=== PATIENT | female | born 1965 | race Caucasian/White ===

== ENCOUNTER 2016-12-10 07:51 | Emergency (ER) | payer BC ==
[2016-12-10 08:41] LABS: Hematocrit 40 % (35-47); Hemoglobin 13.7 g/dl (12.0-16.0); Mean Corpuscular HGB Conc 34 g/dl (31-36); Mean Corpuscular Hemoglobin 30 pg (27-31); Mean Corpuscular Volume 87 fL (80-97); Mean Platelet Volume 7 um3 (7.4-10.4); Red Blood Count 4.58 10^6/ul (4.0-5.4); Red Cell Distribution Width 12 % (10.5-15); White Blood Count 6.2 10^3/ul (3.5-10.8)
[2016-12-10 08:47] LABS: Urine Bacteria Absent (Absent); Urine Bilirubin Negative (Negative); Urine Glucose Negative (Negative); Urine Nitrite Negative (Negative)
[2016-12-10 08:59] LABS: Albumin 4.1 g/dL (3.2-5.2); BUN/Creatinine Ratio 15.8 (8-20); Calcium 8.9 mg/dL (8.6-10.3); EGFR African American 103.6 (>60); EGFR Non-African American 80.6 (>60); Globulin 2.4 g/dL (2-4); Magnesium 2.1 mg/dL (1.9-2.7); Potassium 3.8 mmol/L (3.5-5.0); Total Bilirubin 0.6 mg/dL (0.2-1.0); Total Protein 6.5 g/dL (6.4-8.9)
[2016-12-10 09:28] LABS: TSH (Thyroid Stimulating Horm) 1.06 mcIU/mL (0.34-5.60)
--- NOTE | 2016-12-10 14:07 | ED ---
HPI Cardiac - HPI Summary HPI Summary: This 51 y/o female presents to ED via ambulance for intermittent tingling/warm paresthesia "through entire body" today AM while driving. She expresses concern for possible heart attack. She did not take any ASA this morning. Pt also reports sinus discomfort since yesterday and chronic right shoulder pain that flared up during today AM's episode. She is menopausal. PMHx includes CMT and HLD controlled by meds. FHx is negative for cardiac dz. Renetta Note: Patient is a 51yo female who presents with a 1 hour history of sudden onset right shoulder/clavicular pain while driving to work. Soon after experiencing a "warm" sensation starting from her feet and radiating to the rest of her body. Concerned for [place]. Patient expressed concern for possible [place]. Denies family or personal history of cardiac issues. Patient reports she has been somewhat feeling "off" lately describing this feeling as coming down with something perhaps. However, notes she has been feeling this way and extremely fatigued for a year or so. They became vegetarian one year ago to be healthier and cut down on her cholesterol. However, she notes her cholesterol remains high, and she has been fatigued. Provider discussed the possible need for B12 and should follow up with PCP about this. Denies chest pain, SOB, LOVELL, weakness in extremities or blurry vision. - History of Current Complaint Chief Complaint: EDGeneral Stated Complaint: TINGLING Hx Obtained From: Patient Onset/Duration: Started Minutes Ago Timing: Lasting Minutes Initial Severity: Mild Current Severity: Mild Pain Intensity: 0 Pain Scale Used: 0-10 Numeric Chest Pain Radiates To:: Other - chest pain is upper clavicular/shoulder pain Aggravating Factor(s): Nothing Alleviating Factor(s): Nothing Associated Signs and Symptoms: Positive: Numbness, Tingling - dissipated within minutes Related History: Similar Episode/Dx as: - Risk Factors Pulmonary Embolism Risk Factors: Negative Cardiac Risk Factors: Elevated Lipids Atrial Fibrillation Risk Factors: Hypothyroid TAD Risk Factors: Negative AMI/ACS Risk Factors: Dyslipidemia Pseudomonas Risk Factors: Negative Tuberculosis Risk Factors: Negative - Allergy/Home Medications Allergies/Adverse Reactions: Allergies Allergy/AdvReac Type Severity Reaction Status Date / Time Iodine Allergy Rash Verified 12/10/16 08:09 PMH/Surg Hx/FS Hx/Imm Hx Previously Healthy: Yes Infectious Disease History: No Infectious Disease History: Denies: Traveled Outside the [place] in Last 30 Days - Social History Occupation: Employed Full-time Lives: With Family Alcohol Use: None Substance Use Type: Reports: None Hx Tobacco Use: No Smoking Status (MU): Never Smoked Tobacco Review of Systems - ROS Summary Review of Systems Summary: Constitutional: The patient denies fever, LOVELL. HEENT: Head: The patient denies headaches or dizziness. Eyes: The patient denies diplopia, blurry vision, eye pain, eye discharge, photophobia. Throat: The patient denies sore throats or hoarseness. Cardiovascular: The patient denies chest pain, palpitations, syncope, night cramps, or orthostasis. Respiratory: The patient denies cough, sputum production, hemoptysis, dyspnea, wheezing. Gastrointestinal: Denies abdominal pain, nausea or vomiting. Denies constipation or diarrhea. Genitourinary: Patient denies dysuria, hematuria, or pyuria. Patient denies back pain. Denies vaginal discharge, vaginal bleeding. Denies other urinary symptoms. Endocrine: The patient denies polydipsia, polyuria, or polyphagia. Patient experienced warm body sensation from feet to head. Muscles: The patient strain or weakness. Patient endorses pain over clavicular area on Rt side adjoining with R shoulder. Patient weak at baseline d /t her muscular disorder. Joints: The patient denies arthralgia and/or arthritis. Neurologic: The patient denies headache, loss of consciousness, or seizure. Dermatologic: The patient denies hyperpigmentation, rash, or photosensitivity. All Other Systems Reviewed And Are Negative: Yes NIH Scale - NIH Scale Level of Consciousness: Alert/Keenly Responsive Ask Pt to Open/Close Eyes and [employer]r Central Office/Release Non-Paretic Hand: Both Correctly Best Gaze (Only Horizontal Eye Movement): Normal Visual Field Testing: No Visual Loss Facial Paresis-Pt to Smile & Close Eyes or Grimace Symmetry: Normal/Symmetrical Motor Function - Right Arm: No Drift-Holds 10 Seconds Motor Function - Left Arm: No Drift-Holds 10 Seconds Motor Function - Right Leg: No Drift-Holds 10 Seconds Motor Function - Left Leg: No Drift-Holds 10 Seconds Best Language (Describe Picture, Name Items): No Aphasia Dysarthria (Read Several Words): Normal Physical Exam - Summary Physical Exam Summary: Constitutional: Well-developed, Well-nourished, Alert. (-) Distressed Skin: Warm, Dry HENT: Normocephalic; Atraumatic Eyes: Conjunctiva normal Neck: Musculoskeletal ROM normal neck. (-) JVD, (-) Stridor, (-) Tracheal deviation Cardio: Rhythm regular, rate normal, Heart sounds normal; Intact distal pulses; The pedal pulses are 2+ and symmetric. Radial pulses are 2+ and symmetric. (-) Murmur Pulmonary/Chest wall: Effort normal. (-) Respiratory distress, (-) Wheezes, (-) Rales Abd: Soft, (-) Tenderness, (-) Distension, (-) Guarding, (-) Rebound Musculoskeletal: (-) Edema Lymph: (-) Cervical adenopathy Neuro: Alert, Oriented x3 Psych: Mood and affect Normal Vital Signs On Initial Exam: Initial Vitals Temp Pulse Resp BP Pulse Ox 99.8 F 84 16 159/72 97 12/10/16 07:59 12/10/16 07:59 12/10/16 07:59 12/10/16 07:59 12/10/16 07:59 - Annel Coma Scale Coma Scale Total: 15 Diagnostics - Vital Signs Vital Signs Temp Pulse Resp BP Pulse Ox 12/10/16 12:56 98.9 F 68 16 137/75 12/10/16 10:00 77 18 119/80 100 12/10/16 09:30 75 23 145/69 99 12/10/16 09:00 69 17 116/65 99 12/10/16 08:44 129/68 12/10/16 08:33 75 25 97 12/10/16 08:32 121/65 12/10/16 07:59 99.8 F 84 16 159/72 97 - Laboratory Lab Results: Lab Results 12/10/16 12/10/16 12/10/16 Range/Units 08:26 08:26 08:26 WBC 6.2 (3.5-10.8) 10^3/ul RBC 4.58 (4.0-5.4) 10^6/ul Hgb 13.7 (12.0-16.0) g/dl Hct 40 (35-47) % MCV 87 (80-97) fL MCH 30 (27-31) pg MCHC 34 (31-36) g/dl RDW 12 (10.5-15) % Plt Count 224 (150-450) 10^3/ul MPV 7 L (7.4-10.4) um3 Neut % (Auto) 72.5 (38-83) % Lymph % (Auto) 21.8 L (25-47) % Dorado % (Auto) 4.6 (1-9) % Eos % (Auto) 0.6 (0-6) % Baso % (Auto) 0.5 (0-2) % Absolute Neuts (auto) 4.5 (1.5-7.7) 10^3/ul Absolute Lymphs (auto) 1.3 (1.0-4.8) 10^3/ul Absolute Monos (auto) 0.3 (0-0.8) 10^3/ul Absolute Eos (auto) 0 (0-0.6) 10^3/ul Absolute Basos (auto) 0 (0-0.2) 10^3/ul Absolute Nucleated RBC 0 10^3/ul Nucleated RBC % 0 INR (Anticoag Therapy) 1.06 (0.89-1.11) APTT 31.2 (26.0-36.3) seconds Sodium 138 (133-145) mmol/L Potassium 3.8 (3.5-5.0) mmol/L Chloride 104 (101-111) mmol/L Carbon Dioxide 27 (22-32) mmol/L Anion Gap 7 (2-11) mmol/L BUN 12 (6-24) mg/dL Creatinine 0.76 (0.51-0.95) mg/dL Est GFR ( Amer) 103.6 (>60) Est GFR (Non-Af Amer) 80.6 (>60) BUN/Creatinine Ratio 15.8 (8-20) Glucose 92 (70-100) mg/dL Calcium 8.9 (8.6-10.3) mg/dL Magnesium 2.1 (1.9-2.7) mg/dL Total Bilirubin 0.60 (0.2-1.0) mg/dL AST 20 (13-39) U/L ALT 20 (7-52) U/L Alkaline Phosphatase 35 (34-104) U/L Total Creatine Kinase 31 (10-223) U/L CK-MB (CK-2) 1.3 (0.6-6.3) ng/mL Myoglobin 27.8 (14.3-65.8) ng/mL Troponin I 0.00 (<0.04) ng/mL B-Natriuretic Peptide ( - 100) pg/mL Total Protein 6.5 (6.4-8.9) g/dL Albumin 4.1 (3.2-5.2) g/dL Globulin 2.4 (2-4) g/dL Albumin/Globulin Ratio 1.7 (1-3) TSH Pending Urine Color Urine Appearance Urine pH (5-9) Ur Specific [place] (1.010-1.030) Urine Protein (Negative) Urine Ketones (Negative) Urine Blood (Negative) Urine Nitrate (Negative) Urine Bilirubin (Negative) Urine Urobilinogen (Negative) Ur Leukocyte Esterase (Negative) Urine WBC (Auto) (Absent) Urine RBC (Auto) (Absent) Ur Squamous Epith Cells (Absent) Urine Bacteria (Absent) Urine Glucose (Negative) 12/10/16 12/10/16 Range/Units 08:26 08:26 WBC (3.5-10.8) 10^3/ul RBC (4.0-5.4) 10^6/ul Hgb (12.0-16.0) g/dl Hct (35-47) % MCV (80-97) fL MCH (27-31) pg MCHC (31-36) g/dl RDW (10.5-15) % Plt Count (150-450) 10^3/ul MPV (7.4-10.4) um3 Neut % (Auto) (38-83) % Lymph % (Auto) (25-47) % Dorado % (Auto) (1-9) % Eos % (Auto) (0-6) % Baso % (Auto) (0-2) % Absolute Neuts (auto) (1.5-7.7) 10^3/ul Absolute Lymphs (auto) (1.0-4.8) 10^3/ul Absolute Monos (auto) (0-0.8) 10^3/ul Absolute Eos (auto) (0-0.6) 10^3/ul Absolute Basos (auto) (0-0.2) 10^3/ul Absolute Nucleated RBC 10^3/ul Nucleated RBC % INR (Anticoag Therapy) (0.89-1.11) APTT (26.0-36.3) seconds Sodium (133-145) mmol/L Potassium (3.5-5.0) mmol/L Chloride (101-111) mmol/L Carbon Dioxide (22-32) mmol/L Anion Gap (2-11) mmol/L BUN (6-24) mg/dL Creatinine (0.51-0.95) mg/dL Est GFR ( Amer) (>60) Est GFR (Non-Af Amer) (>60) BUN/Creatinine Ratio (8-20) Glucose (70-100) mg/dL Calcium (8.6-10.3) mg/dL Magnesium (1.9-2.7) mg/dL Total Bilirubin (0.2-1.0) mg/dL AST (13-39) U/L ALT (7-52) U/L Alkaline Phosphatase (34-104) U/L Total Creatine Kinase (10-223) U/L CK-MB (CK-2) (0.6-6.3) ng/mL Myoglobin (14.3-65.8) ng/mL Troponin I (<0.04) ng/mL B-Natriuretic Peptide 22 ( - 100) pg/mL Total Protein (6.4-8.9) g/dL Albumin (3.2-5.2) g/dL Globulin (2-4) g/dL Albumin/Globulin Ratio (1-3) TSH Urine Color Straw Urine Appearance Clear Urine pH 6.0 (5-9) Ur Specific [place] 1.003 L (1.010-1.030) Urine Protein Negative (Negative) Urine Ketones Trace H (Negative) Urine Blood 1+ H (Negative) Urine Nitrate Negative (Negative) Urine Bilirubin Negative (Negative) Urine Urobilinogen Negative (Negative) Ur Leukocyte Esterase Negative (Negative) Urine WBC (Auto) Absent (Absent) Urine RBC (Auto) Trace(0-2/hpf) (Absent) Ur Squamous Epith Cells Present H (Absent) Urine Bacteria Absent (Absent) Urine Glucose Negative (Negative) Result Diagrams: 12/10/16 08:26 12/10/16 08:26 Lab Statement: Any lab studies that have been ordered have been reviewed, and results considered in the medical decision making process. Disposition - Course Course Of Treatment: patient given EKG - normal. labs obtained. full physical including neuro. Labs negative. trop o.o, then 0.1. second ekg normal. discussed in length about possible contributions to shoulder clavicular pain with specific follow up instructions. patient agrees to follow up with PCP. Spoke with Dr. Wolf (PCP) regaurding patient. Told to follow up as outpatient after receiving negative EKG and trops. patient agrees. - Differential Dx - Cardiopulmonary Differential Diagnoses - Cardiopulmonary: Other - pleurisy, hot flash, cold/flu symptoms, CAD - Diagnoses Provider Diagnoses: Chest wall pain - Physician Notifications Instructed by Provider To: Have Pt Call For Appt. - follow up with Dr. Wolf Discharge - Discharge Plan Condition: Stable Disposition: HOME Patient Education Materials: Hyperlipidemia (GEN) Referrals: Hernan Wolf MD [Primary Care Provider] - Additional Instructions: Follow up with Dr. Wolf. As discussed: May add Red yeast rice to your vitamin supplements. May ask Dr. Wolf about this. Thyroid today within normal limits. EKG, cardiac enzymes within normal limits. Information on cholesterol foods. Limit saturated fats and oils, such as butter, laguerre drippings, lard, palm oil, and coconut oil. Instead, use soft tub margarine or vegetable oils, such as olive or canola oil. Avoid trans fats or partially hydrogenated vegetable oils. These oils go through a process that makes them solid. They're found in some hard margarines, snack crackers, cookies, chips, and shortenings. Limit fatty meats such as corned beef, pastrami, ribs, steak, ground meat, hot dogs, sausage, laguerre, and processed meats like bologna. Also limit organ meats like liver and kidney. Replace with skinless chicken or turkey, lean beef, veal , pork, miller, and fish. Try some meatless main dishes, like beans, peas, pasta, or rice. Limit meat, poultry, and fish to no more than two servings, or 5 oz (140 g), a day. Remember that a serving is about the size of a deck of playing cards. Limit egg yolks. Limit milk products that contain more than 1% milk fat. This includes cream, most cheeses, and nondairy coffee creamers or whipped topping (which often contain coconut or palm oils). Instead try fat-free or low-fat milk (0% to 1% fat) and low-fat cheeses. Limit snack crackers, muffins, quick breads, croissants, and cakes made with saturated or hydrogenated fat, whole eggs, or whole milk. Try low-fat baked goods, and use any spreads or toppings lightly. Instead of using butter or margarine on bread, try dipping it in olive oil. Avoid fast foods like hamburgers, fries, fried chicken, and tacos. They are high in both total fat and saturated fat. When you eat out, choose broiled sandwiches or chicken without skin, salads with low-fat dressing, and foods that aren't fried. Ask the patient admitting clerk to leave off the cheese and high-fat dressings like mayonnaise.
--- NOTE | 2016-12-10 15:28 | ED ---
Rafiq Zelaya Soohyun, scribed for Hung Topete MD on 12/10/16 at 1021 . Progress - Progress Note Progress Note: This 51 y/o female presents to ED via ambulance for intermittent tingling/warm paresthesia "through entire body" today AM while driving. She expresses concern for possible heart attack. She did not take any ASA this morning. Pt also reports sinus discomfort since yesterday and chronic right shoulder pain that flared up during today AM's episode. She is menopausal. PMHx includes CMT and HLD controlled by meds. FHx is negative for cardiac dz. Physical Exam - Summary Physical Exam Summary: Constitutional: Well-developed, Well-nourished, Alert. (-) Distressed Skin: Warm, Dry HENT: Normocephalic; Atraumatic Eyes: Conjunctiva normal Neck: Musculoskeletal ROM normal neck. (-) JVD, (-) Stridor, (-) Tracheal deviation Cardio: Rhythm regular, rate normal, Heart sounds normal; Intact distal pulses; The pedal pulses are 2+ and symmetric. Radial pulses are 2+ and symmetric. (-) Murmur Pulmonary/Chest wall: Effort normal. (-) Respiratory distress, (-) Wheezes, (-) Rales Abd: Soft, (-) Tenderness, (-) Distension, (-) Guarding, (-) Rebound Musculoskeletal: (-) Edema Lymph: (-) Cervical adenopathy Neuro: Alert, Oriented x3 Psych: Mood and affect Normal Triage Information Reviewed: Yes Vital Signs On Initial Exam: Initial Vitals Temp Pulse Resp BP Pulse Ox 99.8 F 84 16 159/72 97 12/10/16 07:59 12/10/16 07:59 12/10/16 07:59 12/10/16 07:59 12/10/16 07:59 Vital Signs Reviewed: Yes - Annel Coma Scale Coma Scale Total: 15 Course/Dx - Diagnoses Provider Diagnoses: Chest wall pain The documentation as recorded by the Rafiq duggan Soohyun accurately reflects the service I personally performed and the decisions made by Yoselyn hackett Jerry, MD.
[2016-12-10 17:13] VITALS: BP 137/75
== END 2016-12-10 12:56 | disposition home or self-care (01) ==
LOC: ED 07:51
DX: R07.89 Other chest pain (principal); M25.511 Pain in right shoulder
CPT/HCPCS: 36415; 80053; 81003; 81015; 82550; 82553; 83735; 83874; 83880; 84443; 84484; 85025; 85610; 85730; 93005; 99282